=== PATIENT | female | born 1995 ===

== ENCOUNTER 2020-09-13 12:24 | Inpatient (IN) | payer MEDICAID ==
[~2020-09-13] VITALS: Ht 160 cm; Wt 70.8 kg
--- NOTE | ~2020-09-13 | OP ---
PATIENT NAME: NEREIDA MERRITT MEDICAL RECORD: [id number] :93 LOCATION:[facility].1274 ADMISSION DATE:10/03/20 SURGEON: DANIEL PITTMAN DO DATE OF OPERATION: 10/03/2020 PRIMARY SURGEON: Daniel Pittman DO ANESTHESIA: Spinal. PROCEDURE: Repeat low transverse section via Pfannenstiel incision. PREOPERATIVE DIAGNOSIS: Scheduled repeat at 39 weeks. POSTOPERATIVE DIAGNOSIS: Scheduled repeat at 39 weeks. FINDINGS: Female , weight 2962 grams, delivered at 0801, Apgars 8 and 9, delivered in breech position. Small endometriotic lesion on the posterior aspect of the uterus, otherwise uterus, bilateral fallopian tubes and bilateral ovaries were grossly normal. SPECIMENS: Placenta and cord. ESTIMATED BLOOD LOSS: 800 cc. INTRAVENOUS FLUIDS: 1000 cc. URINE OUTPUT: 300 cc clear urine. COMPLICATIONS: None. CONDITION: Stable. DESCRIPTION OF PROCEDURE: The risks, benefits, alternatives and indications of the procedure were discussed with the patient. She voiced understanding of the procedure and signed the consent. She was taken to the OR where spinal anesthesia was administered and found to be adequate. She was placed in the dorsal supine position with a leftward tilt. She was prepped and draped in the normal sterile fashion. A Pfannenstiel skin incision was made with a scalpel and carried down to the underlying layer of the fascia with the Bovie. The fascia was incised in the midline and extended laterally. The inferior aspect of the fascial incision was grasped with Teodoro clamps and the rectus muscle was dissected off sharply. Attention was then turned to the superior aspect of the fascial incision. The rectus muscle was dissected off in a similar fashion. The rectus muscle was grasped with 2 Allises and down to the level of peritoneum with a scalpel. The peritoneum was identified and noted to be free of adherent bowel and entered bluntly. The peritoneum was further with gentle traction. The bladder blade was inserted and a bladder flap was created with Metzenbaum scissors and pickups. The uterus was then incised in a transverse fashion and the lower uterine segment with the scalpel and the incision was extended with cephalad and caudad traction. The fetus was noted to be in breech position. The right foot was grasped and delivered. The fetus then delivered without difficulty in a standard breech maneuver. The mouth and nose were suctioned. Cord was clamped and cut and the infant was handed off to the waiting pediatric team. The placenta was manually removed. The uterus was exteriorized and a moist lap was used to assure complete removal of placenta OPERATIVE REPORT [id number] MERRITT,NEREIDA michael. The hysterotomy was closed with 0 Vicryl in a running locked fashion with double layer closure with good hemostasis. The posterior cul-de-sac was irrigated with warm sterile water and suctioned. The hysterotomy was reinspected and again noted to be hemostatic. The uterus, tubes and ovaries were returned back to the abdominal cavity and a moist laparotomy sponge was used to assure complete removal of blood clots and fluid from the abdominal cavity. The hysterotomy was again reinspected and noted to be hemostatic. The rectus muscle was closed with 2-0 Monocryl in a running fashion with good hemostasis. The fascial incision was closed with 0 Vicryl in a running fashion. The subcutaneous fat was closed with 2-0 plain gut suture and the skin was closed in a subcuticular fashion with 3-0 Monocryl and Steri-Strips covering. All needle, lap, sponge and instrument counts were correct times 2. The patient tolerated the procedure well and she was taken to the recovery room in stable condition. TRANSINT:[id number] Voice Confirmation ID: [id number] DOCUMENT ID: [id number] DANIEL PITTMAN DO CC: [id number] DICTATION DATE: 10/03/2052 HEAD REFRIGERATING ENGINEER: 10/03/[address] [facility] [address] [place] [address]
[2020-10-03] VITALS (13 sets, daily range): BP systolic 109–143; BP diastolic 73–85; Ht 160 cm; Wt 70.8 kg
[2020-10-03 06:41] LABS: HEMATOCRIT 31.1 % (36.0-48.0); HEMOGLOBIN 9.6 g/dL (12-16); MCH 25.9 pg (26.0-34.0); MCHC 30.9 g/dL (31.0-37.0); MCV 83.8 fL (80.0-100.0); MEAN PLATELET VOLUME 10.5 fL (7.4-10.4); RBC 3.71 10x6/uL (4.00-5.40); RDW 15.4 % (11.5-14.5); WBC 8.8 10x3/uL (4.8-10.8)
[2020-10-03 07:01] LABS: BILIRUBIN NEGATIVE (NEGATIVE); KETONE NEGATIVE (NEGATIVE); NITRITE NEGATIVE (NEGATIVE); UROBILINOGEN NORMAL mg/dL (< 2)
[2020-10-03 07:05] LABS: BACTERIA MODERATE HPF (NONE SEEN)
[2020-10-03 07:08] LABS: UDS - AMPHET NEGATIVE QUAL (NEGATIVE); UDS - BARB NEGATIVE QUAL (NEGATIVE); UDS - BENZO NEGATIVE QUAL (NEGATIVE); UDS - COCAINE NEGATIVE QUAL (NEGATIVE); UDS - OPIATE NEGATIVE QUAL (NEGATIVE); UDS - PCP NEGATIVE QUAL (NEGATIVE); UDS - THC NEGATIVE QUAL (NEGATIVE)
--- NOTE | 2020-10-03 08:59 | NUR ---
PT RECEIVED FROM MAR[employer] SAF[employer]Y OFFICER IN BED IN ROOM 1274. PT AAOx3, DENIES PAIN OR NAUSEA. VSS, SEE FLOWSHEET. IV INFUSING PITOCIN TO LEFT HAND PIV AT 125ML/H. LARGE OCCLUSIVE DRESSING OVER LOW TRANSVERSE ABD INCISION IS C/D/I. FF, ML, U/2. SMALL RUBRA LOCHIA, NO CLOTS EXPELLED WITH MASSAGE. ADAN CATH DRAINING CLEAR YELLOW URINE TO BEDSIDE DRAINAGE, 50ML NOTED IN UROMETER. SCD'S ON LE BILAT AND ON PUMP. ICE PACK TO ABD INCISION. ICE WATER GIVEN. PT POSITIONED UP IN BED TO SITTING TO HOLD .
--- NOTE | 2020-10-03 09:33 | NUR ---
THIS RN TO ROOM FOR PT CHECK. PT SITTING UP IN BED, HOLDING . PT DENIES PAIN OR ANY NEEDS. FF, ML, U/2. SMALL RUBRA LOCHIA, NO CLOTS EXPELLED WITH MASSAGE. ICE PACK REFILLED AND PLACED TO ABD INCISION. FRESH ICE WATER GIVEN. 30ML CLEAR YELLOW URINE EMPTIED FROM UROMETER. SRUx2, CL IN REACH. FAMILY AT BEDSIDE.
--- NOTE | 2020-10-03 10:47 | NUR ---
PT CALLS OUT GUITAR REPAIRER LIGHT, THIS RN TO ROOM. PT RATING PAIN 5/10, REQUESTING PAIN MED. WANTS TO TRY TORADOL FIRST BEFORE TAKING ANYTHING THAT WILL MAKE HER DROWSY. TORADOL ADMIN IV ORDERED, SEE EMAR FOR DOC. FF, ML, U/1. 75ML CLEAR YELLOW URINE EMPTIED FROM UROMETER. PT DENIES FURTHER NEEDS. RESTING IN [place]. SIG OTHER ON BEDSIDE COUCH. SRUx2, CL IN REACH.
--- NOTE | 2020-10-03 11:08 | NUR ---
THIS RN TO ROOM FOR PAIN REASSESSMENT. PT RESTING WITH EYES CLOSED, ALERTS THIS RN ENTERS ROOM. RATES PAIN 2/10 AFTER TORADOL, DENIES FURTHER NEEDS. DENIES NEEDING LIGHTS DIMMED FOR REST. SRUx2, CL IN REACH. SIG OTHER ON BEDSIDE COUCH.
--- NOTE | 2020-10-03 12:30 | NUR ---
THIS RN TO ROOM FOR PT CHECK. PT SITTING UP IN BED, TALKING WITH SIG OTHER. RATES PAIN 2/10. FF, ML, U/1. SMALL RUBRA LOCHIA, NO CLOTS. 100ML CLEAR YELLOW URINE EMPTIED FROM UROMETER. NEW ICE PACK TO ABD INCISION. PT DENIES NEEDS. SRUx2, CL IN REACH.
--- NOTE | 2020-10-03 13:10 | NUR ---
THIS RN TO ROOM FOR PT CHECK. PT DENIES NEEDS AT THIS TIME. SRUx2, CL IN REACH. SIG OTHER ON BEDSIDE COUCH.
--- NOTE | 2020-10-03 14:43 | NUR ---
THIS RN TO ROOM FOR PT CHECK. VSS, SEE FLOWSHEET FOR DOC. 75ML CLEAR YELLOW URINE EMPTIED FROM UROMETER. FF, ML, U/2. SMALL RUBRA LOCHIA, NO CLOTS. PERIPADS CHANGED. PT INSTRUCTED ON USE OF INCENTIVE SPIROMETER. PT RETURN DEMONSTRATES WITH POOR EFFORT AND WEAK COUGH. PT INSTRUCTED ON IMPORTANCE OF CLEARING LUNGS, WEAK EFFORT REPEATED. PT ENCOURAGED. NEW ICE WATER GIVEN. PT RATES PAIN 4/10, DENIES NEEDING PAIN MED. SRUx2, CL IN REACH. PT SIG OTHER ON BEDSIDE COUCH.
--- NOTE | 2020-10-03 18:30 | NUR ---
TO PT'S ROOM, FUNDUS FIRM, U/1, SMALL RUBRA LOCHIA, NO CLOTS. PERICARE DONE WITH FOAM CLEANSER, PERIPADS/CHUX CHANGED. NEW ICE PACK PLACED OVER GOWN TO INCISION, WHITE DRESSING C/D/I. ADAN EMPTIED WITH 900 ML DARK YELLOW URINE. PTS POSITION CHANGED TO RIGHT TILT, WITH PILLOW PLACED BEHIND BACK FOR SUPPORT FOR COMFORT AND SUPPORT. FRESH WATER, NO ICE SERVED TO PT. SIG OTHER AT BEDSIDE, IN CRIB. NO DISTRESS NOTED. PT DENIES ALL OTHER NEEDS AT THIS TIME. SRUP X 2, CALL LIGHT AND PHONE WITHIN REACH.
--- NOTE | 2020-10-03 19:07 | NUR ---
DR CASPER CALLED LABOR UNIT AT THIS TIME WITH ORDERS TO NORMALIZE THE PATIENT AT 12 HRS POST-OP.
--- NOTE | 2020-10-03 19:55 | NUR ---
RN TO ROOM. PT LYING SUPINE WITH HOB 30 DEGREES. AAOX4. RATES PAIN 09/09. SHIFT ASSESSMENT COMPLETED. SEE FLOWSHEET. HR-RRR, PPP, LUNGS CTAB, BS X4. PIV TO LEFT HAND PATENT WITH PITOCIN INFUSING AT 125ML/HR. NO ERYTHEMA OR EDEMA NOTED TO SITE. SCD'S IN PLACE AND PUMP ON. ADAN CATH DRAINING TO GRAVITY WITH 50 ML'S CLEAR YELLOW URINE NOTED IN UROMETER. PT DENIES NEEDS. BED LOW, WHEELS LOCKED, CALL LIGHT AND PHONE WITHIN REACH, SIDE RAILS UP X2.
--- NOTE | 2020-10-03 20:20 | NUR ---
ADAN CATH D/C'D WITH CATH TIP INTACT. 400 ML CLEAR YELLOW URINE IN UROMETER. PIV SL AT THIS TIME. POC DISCUSSED WITH PT. UNDERSTANDING VERBALIZED.
--- NOTE | 2020-10-03 22:18 | NUR ---
SCHEDULED MOTRIN GIVEN PER ORDERS. SEE EMAR FOR ADMINISTRATION. PT DENIES NEED TO VOID OR FURTHER NEEDS.
--- NOTE | 2020-10-04 | NUR ---
PT RINGS CALL LIGHT REPORTING NEED TO VOID. RN TO BEDSIDE. PT ASSISTED TO SITTING ON THE SIDE OF BED. NO C/O DIZZINESS OR LIGHTHEADEDNESS. PT AMB TO THE BATHROOM WITH STANDBY ASSIST. STEADY GAIT NOTED. PT VOIDED 900 ML BLOOD TINGED URINE INTO [place] HAT. PANTIES AND PERIPADS PLACED. PT AMB BACK TO BED PER SELF. RATES PAIN 5/10 AND DENIES NEED FOR PAIN MEDICATION AT THIS TIME. ADV PT TO CALL IF PAIN WORSENS OR IF SHE HAS ANY NEEDS. UNDERSTANDING VERBALIZED.
--- NOTE | 2020-10-04 02:00 | NUR ---
ROUNDS MADE. BLANKETS AND PILLOWS PROVIDED FOR FOB. PT DENIES NEEDS AT THIS TIME. WILL CONTINUE TO MONITOR.
[2020-10-04 04:28] VITALS: BP 119/63
--- NOTE | 2020-10-04 04:28 | NUR ---
ROUNDS MADE. SCHEDULED MOTRIN GIVEN PER ORDERS. SEE EMAR FOR ADMINISTRATION. PT RATES PAIN 5/10 AT THIS TIME. VSS. DENIES FURTHER NEEDS. WILL CONTINUE TO MONITOR.
--- NOTE | 2020-10-04 06:25 | NUR ---
PT RESTING WITH EYES CLOSED, RESPIRATIONS EVEN AND UNLABORED. PT LEFT UNDISTURBED.
--- NOTE | 2020-10-04 06:49 | NUR ---
PT RINGS CALL LIGHT. RN TO BEDSIDE. PT HAD JUST USED THE RESTROOM. 700 ML BLOOD TINGED URINE EMPTIED FROM [place] HAT. NO FURTHER NEEDS VOICED. ADVISED SHE NO LONGER HAS TO COLLECT URINE. UNDERSTANDING VERBALIZED.
[2020-10-04 08:03] LABS: BASOPHILS 0.2 % (0-2); EOSINOPHILS 0.7 % (0-7); HEMATOCRIT 29.6 % (36.0-48.0); IMMATURE GRANULOCYTES 0.6 % (0-5); LYMPHOCYTE ABS# 2.44 10x3/uL (1.18-3.74); MCH 25.8 pg (26.0-34.0); MCHC 30.4 g/dL (31.0-37.0); MCV 84.8 fL (80.0-100.0); MEAN PLATELET VOLUME 10.9 fL (7.4-10.4); MONOCYTES 6.1 % (2-11); NEUTROPHIL ABS# 5.92 10x3/uL (1.56-6.13); NEUTROPHILS 65.4 % (40-80); PLATELET COUNT 341 10x3/uL (130-400); RBC 3.49 10x6/uL (4.00-5.40); RDW 16.2 % (11.5-14.5)
[2020-10-04 08:21] VITALS: BP 119/63
--- NOTE | 2020-10-04 08:30 | NUR ---
DR CASPER AT BEDSIDE WITH ASSESSMENT PER MD, PT RATES PAIN AT 1/10 FUNDUS FIRM AT U/U WITH SCANT LOCHIA NOTED TO LISSETT PAD. DR CASPER REMOVES BANDAGE FROM BIKINI INCISION, STERI STRIPS IN PLACE THAT ARE CLEAN AND DRY. SALINE LOCK REMOVED INTACT FROM LEFT HAND. PT EXPRESS CONCERNS THAT SHE HAS NOT NOTICED ANY BREASTMILK YET, MD SUGGEST USING BREASTPUMP AND PT IS AGREEABLE. NURSERY NOTIFIED SO THAT ONE COULD BE TAKEN TO ROOM. STATES UNDERSTANDING THAT SHE IS ABLE TO SHOWER WHEN SHE IS READY AND WILL CALL FOR NURSE IF ASSISTANCE IS NEEDED. IN CRIB AT BEDSIDE AND SPOUSE ALSO PRESENT. CALL LIGHT IN REACH WITH SIDE RAILS UP X 2.
[2020-10-04 10:21] LABS: RAPID PLASMA REAGIN Non Reactive (Non Reactive)
--- NOTE | 2020-10-04 10:30 | NUR ---
IBUPROFEN GIVEN SCHEDULED AND SCANNED TO EMAR. PT SITTING UP IN BED WITH IN CRIB AT BEDSIDE. RATES PAIN AT INCISION AT 3/10 AT THIS TIME. CALL LIGHT IN REACH.
--- NOTE | 2020-10-04 11:20 | NUR ---
PAIN REASSESSMENT AT THIS TIME SHE RATES AT 1/10. LARGE WATER PROVIDED REQUESTED. DENIES FURTHER NEEDS AT THIS TIME. CALL LIGHT IN REACH.
--- NOTE | 2020-10-04 13:40 | NUR ---
CASSIDY WITH MED RECORDS TO BEDSIDE WITH THIS RN. PT SITTING UP ON EDGE OF BED. TRANSLATION LINE USED TO OBTAIN NEEDED INFORMATION. PT DENIES PAIN. WATER PROVIDED PER REQUEST. QUESTION REGARDING AMBULATION ANSWERED AND TO NBN PER REQUEST.
--- NOTE | 2020-10-04 14:58 | NUR ---
AMBULATORY IN BURGER WITH SPOUSE. STEADY GAIT NOTED. DENIES NEEDS.
--- NOTE | 2020-10-04 16:43 | NUR ---
C/O ABD AND INCISIONAL DISCOMFORT 09/09. MOTRIN GIVEN PER ORDER AND PT REQUEST. INFANT TO NBN PER PT REQUEST. WATER PROVIDED. BED IN LOW POSITION WITH SRUP X2. CALL LIGHT AND PHONE WITHIN REACH. SIG OTHER AT BEDSIDE, SUPPORTIVE AND ATTENTIVE TO PT AND INFANT NEEDS.
--- NOTE | 2020-10-04 17:37 | NUR ---
RESTING QUIETLY WITH EYES CLOSED LAYING ON R SIDE. RESP REGULAR AND UNLABORED, NO S/S OF DISTRESS NOTED. BED IN LOW POSITION WITH SRUP X2. CALL LIGHT AND PHONE WITHIN REACH.
--- NOTE | 2020-10-04 18:17 | NUR ---
RESTING QUIETLY WITH EYES CLOSED IN SEMI-FOWLERS POSITION. RESP REGULAR AND UNLABORED, NO S/S OF DISTRESS NOTED. INFANT REMAINS IN NBN. BED IN LOW POSITION WITH SRUP X2. CALL LIGHT AND PHONE WITHIN REACH. SPOUSE RESTING ON COUCH AT BEDSIDE.
--- NOTE | 2020-10-04 19:00 | NUR ---
PT REC'D IN BED AT THIS TIME. ON CHEST. PT VERBALIZED NO NEEDS AT THIS TIME. NO DISTRESS NOTED. Brittny JIMENEZ RN
[2020-10-04 19:48] VITALS: BP 108/67
--- NOTE | 2020-10-04 19:48 | NUR ---
PT REC'D IN BED AT THIS TIME. STATES THAT PAIN IS A 3 ADDITIONAL PAIN MEDICATION OFFERED BUT REFUSED AT THIS TIME. LUNGS CLEAR. BS+. PT STATES THAT SHE IS PASSING FLATUS AT THIS TIME. STERISTRIPS IN PLACE. NO S/S OF INFECTION NOTED AT THIS TIME. FUNDUS FIRM AND MIDLINE. SCNAT LOCHIA NOTED. NO DISTRESS NOTED. CALL LIGHT IN PT REACH. Brittny JIMENEZ RN
--- NOTE | 2020-10-04 20:35 | NUR ---
PT REC'D UP TO THE BATHROOM. NO DISTRESS NOTED. Brittny JIMENEZ RN
--- NOTE | 2020-10-04 21:40 | NUR ---
PT DENIES NEEDS AT THIS TIME. RESTING WELL. DENIES PAIN. Brittny JIMENEZ RN
--- NOTE | 2020-10-04 22:37 | NUR ---
pt rec'd asleep but easily awakeded at this time. medicated withscheduled ibuprofen pain level of 3. call light in pt heriberto. drake juarez rn
[2020-10-05 00:27] VITALS: BP 109/73
--- NOTE | 2020-10-05 00:27 | NUR ---
pt rec'd in bed awake at this time. no distress noted. vss. denies pain. drake juarez rn
--- NOTE | 2020-10-05 02:59 | NUR ---
PT REC'D IN BED AT THIS TIME. HOLDING INFANT. DENIES NEEDS AT THIS TIME. Brittny JIMENEZ RN
[2020-10-05 04:40] VITALS: BP 105/69
--- NOTE | 2020-10-05 04:44 | NUR ---
pt rec'd in bed asleep at this time. vss. medicated with scheduled ibuprofen. norco offered but refused at this time. no distress noted. call light in pt heriberto. drake juarez rn
--- NOTE | 2020-10-05 07:45 | NUR ---
TO ROOM FOR AM ASSESSMENT, PT IS CURRENTLY FEEDING AND DENIES PAIN OR NEEDS. CALL LIGHT IN REACH
--- NOTE | 2020-10-05 10:30 | NUR ---
MOTRIN GIVEN ORDERED AND SCANNED TO EMAR. RATES PAIN AT 1/10. LARGE WATER WITHOUT ICE PROVIDED UPON REQUEST.
--- NOTE | 2020-10-05 11:52 | NUR ---
DR CASPER AT BEDSIDE
--- NOTE | 2020-10-05 12:08 | NUR ---
DISCHARGE ORDER RECEIVED FROM DR CASPER PT TO FOLLOW UP IN CLINIC IN 2 WEEKS.
[2020-10-05] MEDS ORDERED: PERCOCET 5-3251 TAB PO (13:49)
--- NOTE | 2020-10-05 14:50 | NUR ---
VERBAL AND WRITTEN INSTRUCTIONS GONE OVER AND PROVIDED TO PT PRINTED IN YI. WRITTEN SCRIPT GIVEN TO HER FOR PERCOCET 5/325MG. DENIES QUESTIONS OR CONCERNS. NURSERY NURSE AT BEDSIDE TO BEGIN DISCHARGE TEACHING.
--- NOTE | 2020-10-05 15:45 | NUR ---
CALL LIGHT ANSWERED, SECURED IN TO CARRIER. PT TAKEN OUT BY WHEELCHAIR. HOME BY PRIVATE CAR WITH SPOUSE.
== END 2020-10-05 16:00 | disposition home or self-care (01) | DRG 788 ==
LOC: D.LD 10-03 05:33
PROVIDERS: ADMIT Student in an Organized Health Care Education/Training Program; ATTEND Student in an Organized Health Care Education/Training Program
PROC: 10D00Z1 Extraction of Products of Conception, Low, Open Approach (ICD-10-PCS; principal; 2020-10-03 07:00)
DX: O32.1XX0 Maternal care for breech presentation, not applicable or unspecified (principal); O34.219 Maternal care for unspecified type scar from previous cesarean delivery; Z3A.39 39 weeks gestation of pregnancy; Z37.0 Single live birth